=== PATIENT | male | born 1985 | race Caucasian/White ===

== ENCOUNTER 2020-07-13 11:55 | Emergency (ER) | payer OTHER, SELFPAY ==
--- NOTE | ~2020-07-13 | XR_ITS ---
EXAMINATION: XR ankle LT min 3V EXAM DATE: 07/13/2020 12:15 INDICATION: Initial encounter following injury, with pain of the left ankle. Fell down steps. TECHNIQUE: Left ankle frontal, lateral and oblique projections obtained and reviewed. There is no pr ior study for comparison. FINDINGS: The left ankle mortise appears intact. There are no acute fractures or dislocations ident ified. There is no subcutaneous gas. There is soft tissue swelling over the ankle anterolaterally. A dditionally, sizable ankle joint effusion. There are no radiopaque foreign bodies. IMPRESSION: 1. Left ankle exam without acute osseous findings. 2. Ankle joint effusion. 3. Soft tissue swelling. Reviewed, dictated and finalized at location A.
[2020-07-13 12:04] VITALS: BP 126/73; PULSE 83; RESP 16; TEMP 36.5; O2SAT 100
--- NOTE | 2020-07-13 12:21 | ED.LOWEXIN ---
HPI - Extremity Injury (Lower) General Chief Complaint: Extremity Injury, Lower Stated Complaint: INJURED L ANKLE Time Seen by Provider: 07/13/20 12:17 Source: patient and RN notes reviewed Mode of arrival: ambulatory (With cane) Limitations: no limitations History of Present Illness HPI Narrative: Patient presents today complaining of a left ankle injury. States his ankle rolled while he was walking down some stairs yesterday. Denies pain at rest, but pain increases to 5/10 with any weightbearing. He has been taking ibuprofen, which has been providing relief. He does report some tingling in his ankle when he puts on socks and shoes. MD complaint: ankle injury Related Data Home Medications Medication Instructions Recorded Confirmed fluoride (sodium) [PreviDent 5000 07/13/20 Booster Plus] paroxetine HCl mg PO 07/13/20 Allergies Allergy/AdvReac Type Severity Reaction Status Date / Time No Known Allergies Allergy Verified 07/13/20 12:03 Review of Systems Review of Systems: Narrative: CONSTITUTIONAL: Denies body aches, fever, chills, or sweats. EYES: Denies visual changes, redness, or discharge. ENT: Denies rhinorrhea, congestion, sore throat, or otalgia. CARDIOVASCULAR: Denies chest pain, palpitations, or edema. RESPIRATORY: Denies cough or dyspnea. GASTROINTESTINAL: Denies abdominal pain, nausea, vomiting, or diarrhea. GENITOURINARY: Denies dysuria or hematuria. SKIN: Denies rash, itching, or wounds. MUSCULOSKELETAL: Denies back pain, or myalgia.+ Left ankle injury NEUROLOGIC: Denies headache, numbness, tingling, or weakness. PSYCH: Denies depression or anxiety. PMFSH Comments At time of signature, I have reviewed and agree with nursing past medical, surgical, social and family history unless otherwise noted. Please see nursing chart for further information. There is no relevant family history pertinent to the presenting complaint Exam Narrative: Exam Narrative: GENERAL: Well-appearing, well-nourished, and in no acute distress. HEAD: Normocephalic, atraumatic. EYES: EOMI. No redness or drainage. Conjunctivae normal. ENT: Mucous membranes pink and moist. NECK: Normal AROM. CHEST: No respiratory distress. EXTREMITIES: Left ankle: Moderate swelling of the anterolateral ankle with tenderness to palpation. No bony tenderness of the lateral or medial malleolus. No tenderness to the Achilles tendon. No tenderness to the foot. Distal sensation intact. Capillary refill normal. Pedal pulse normal. Pain with PROM external rotation and plantar flexion. SKIN: Warm, dry, no rash. Capillary refill normal. Normal skin turgor. NEURO: No focal deficits. Alert and oriented x3. Gait steady. PSYCH: Normal affect. No signs of depression or anxiety. Course Vital Signs Vital signs: Vital Signs Temperature 97.7 F 07/13/20 12:04 Pulse Rate 83 07/13/20 12:04 Respiratory Rate 16 07/13/20 12:04 Blood Pressure 126/73 07/13/20 12:04 Pulse Oximetry 100 07/13/20 12:04 Temperature 97.7 F 07/13/20 12:04 Pulse Rate 83 07/13/20 12:04 Respiratory Rate 16 07/13/20 12:04 Blood Pressure 126/73 07/13/20 12:04 Pulse Oximetry 100 07/13/20 12:04 Reviewed. Pt has been instructed to follow up with his PCP regarding his elevated blood pressure today. MDM - Extremity Injury (Lower) Differential Diagnosis Differential diagnosis: Likely ankle sprain and strain, ankle fracture and other (Foot fracture, foot sprain, contusion) Imaging Data Radiologist's impression: ITS Impressions Ankle X-Ray 07/13/20 12:17 IMPRESSION: 1. Left ankle exam without acute osseous findings. 2. Ankle joint effusion. 3. Soft tissue swelling. Critical Care Time Critical Care Time Critical Care Time: No Discharge Plan Discharge Clinical Impression: Left ankle sprain Qualifiers: Encounter type: initial encounter Involved ligament of ankle: unspecified ligament Qualified Code(s): S93.40
== END 2020-07-13 12:42 | disposition home or self-care (01) ==
PROVIDERS: Emergency Provider Nurse Practitioner
DX: S93.402A Sprain of unspecified ligament of left ankle, initial encounter (principal); X50.9XXA Other and unspecified overexertion or strenuous movements or postures, initial encounter
CPT/HCPCS: 73610; 99213; G0463